=== PATIENT | female | born 1945 | race Caucasian/White ===

== ENCOUNTER 2016-09-10 18:43 | Inpatient (IN) | payer MEDICARE, MEDICAID ==
[~2016-09-10] VITALS: Ht 154.9 cm; Wt 62.1 kg
[~2016-09-10 18:43] MED LIST: LIDOCAINE HCL/PF 1% 2 ML VIAL INJ ONE
[2016-09-10] MEDS ORDERED: ATOR40TA28 PO (19:05)
[2016-09-10] MEDS ORDERED: LEVO250T58 PO (19:05)
[2016-09-10] MEDS ORDERED: ASPI81TA2 PO (19:05)
[2016-09-10] MEDS ORDERED: FURO20 PO (19:05)
[2016-09-10] MEDS ORDERED: GLIP5TAB11 PO (19:05)
[2016-09-10] MEDS ORDERED: CALCIUM CARBONATE PO (19:05)
[2016-09-10] MEDS ORDERED: CEPH250C2 PO (19:05)
[2016-09-10] MEDS ORDERED: GABA-529 PO (19:05)
[2016-09-10] MEDS ORDERED: VALS160T2 PO (19:05)
[2016-09-10] MEDS ORDERED: METO-325 PO (19:05)
[2016-09-10 19:07] LABS: GLUCOSE,POINT OF CARE 85 MG/DL (70-110)
[2016-09-10 19:57] LABS: BASOPHILS % (AUTO) 0.3 % (0.0-2.0); EOSINOPHILS % (AUTO) 8.6 % (1.0-6.0); HEMOGLOBIN 11.2 g/dL (12.0-16.0); LYMPHOCYTES # (AUTO) 2.9 K/uL (1.0-4.8); LYMPHOCYTES % (AUTO) 26.2 % (22.0-44.0); MEAN CORPUSCULAR HEMOGLOBIN 30.5 pg (26.0-34.0); MEAN CORPUSCULAR HGB CONC 32.8 G/dL (31.0-37.0); MEAN CORPUSCULAR VOLUME 93 fL (80-100); MONOCYTES % (AUTO) 9.2 % (2.0-9.0); NEUTROPHILS # (AUTO) 6.1 K/uL (1.8-7.7); NEUTROPHILS % (AUTO) 55.7 % (40.0-70.0); PLATELET COUNT (AUTO) 257 K/uL (150-450); RED BLOOD CELL COUNT(AUTO) 3.66 MIL/uL (4.00-5.20); RED CELL DISTRIBUTION WIDTH 14.1 % (11.5-14.5)
[2016-09-10 20:07] LABS: ANION GAP 11 mmol/L (8-16); CALCIUM, TOTAL 8.1 mg/dL (8.8-10.5); CARBON DIOXIDE 26 mmol/L (22-29); CHLORIDE 95 mmol/L (98-107); CREATININE 7.58 mg/dL (0.60-1.30); GLOMERULAR FILTR. RATE CALC 5 mL/min (>60); POTASSIUM 4.7 mmol/L (3.5-5.1); SODIUM SERUM 132 mmol/L (136-145); UREA NITROGEN, BLOOD 64 mg/dL (7-18)
[2016-09-10 20:22] LABS: ALANINE AMINOTRANSFERASE 15 U/L (12-78); ALBUMIN 3.5 g/dL (3.4-5.0); ASPARTATE AMINOTRANSFERASE 16 U/L (15-37); BILIRUBIN,TOTAL 0.3 mg/dL (0.1-1.0); CREATINE KINASE, TOTAL 43 U/L (26-192); TOTAL PROTEIN, SERUM 8.4 g/dL (6.4-8.2)
[2016-09-10] MEDS ORDERED: METOPROLOL TARTRATE 50 MG TABLET PO ONE (22:00)
[2016-09-10 22:30] VITALS: BP 197/96
[2016-09-10] MEDS ORDERED: PNEUMOCOCCAL VACCINE POLYVALENT 0.5 ML VIAL [PPSV23] IM ONE (23:30)
[2016-09-10 23:38] VITALS: BP 142/60
[2016-09-11] MEDS ORDERED: ONDANSETRON HCL 4 MG/2 ML VIAL IVP PRN (00:15)
[2016-09-11] MEDS ORDERED: 0.9% SODIUM CHLORIDE 10 ML SYRINGE IVP PRN (00:15)
[2016-09-11] MEDS ORDERED: ACETAMINOPHEN 325 MG TABLET PO PRN (00:15)
[2016-09-11 04:08] VITALS: BP 156/68
[2016-09-11 05:18] LABS: APPEARANCE,URINE CLOUDY (CLEAR); GLUCOSE, URINE (UA) 250 mg/dL (NEGATIVE); KETONES,URINE NEGATIVE (NEGATIVE); LEUKOCYTE ESTERASE ,URINE TRACE (NEGATIVE); OCCULT BLOOD,URINE SMALL (NEGATIVE); PH,URINE 7.5 (5.0-8.0); PROTEIN,URINE SEE CONFIRM (NEGATIVE)
[2016-09-11 05:20] LABS: ADD UA MICROSCOPIC YES
[2016-09-11 05:27] LABS: SQUAMOUS EPITHELIAL CELL,UR Moderate /LPF (None Seen); SULFOSALICYLIC ACID,URINE 3+ (Negative)
[2016-09-11 07:03] VITALS: BP 167/77
[2016-09-11] MEDS: HEPARIN SODIUM,PORCINE 5,000 UNITS/ML VIAL SQ SCH ×2 (08:50→20:12)
[2016-09-11 11:30] VITALS: BP 183/72
[2016-09-11] MEDS: HYDROCODONE/ACETAMINOPHEN 5-325 MG TABLET PO PRN ×2 (14:08→20:12)
[2016-09-11 17:40] VITALS: BP 175/79
[2016-09-11] MEDS: HydrALAZINE HCL 50 MG TABLET PO SCH ×2 (18:55→20:12)
[2016-09-11] MEDS: VITAMIN B COMP/VIT C/FOLIC ACID CAPSULE PO SCH (18:55)
[2016-09-11 19:56] VITALS: BP 180/79
[2016-09-11 22:30] VITALS: BP 194/74
[2016-09-11] MEDS: GABAPENTIN 100 MG CAPSULE PO SCH (22:48)
[2016-09-11] MEDS: ATORVASTATIN CALCIUM 40 MG TABLET PO SCH (22:48)
[2016-09-11] MEDS: METOPROLOL SUCCINATE 50 MG ER TABLET PO SCH (22:48)
[2016-09-11] MEDS: VALSARTAN 160 MG TABLET PO SCH (22:48)
[2016-09-11] MEDS: ASPIRIN 81 MG EC TABLET PO SCH (22:48)
[2016-09-12] VITALS (7 sets, daily range): BP systolic 149–181; BP diastolic 63–79
[2016-09-12] MEDS ORDERED: GlipiZIDE 5 MG TABLET PO SCH (06:30)
[2016-09-12] MEDS: HydrALAZINE HCL 50 MG TABLET PO SCH ×3 (08:26→20:09)
[2016-09-12] MEDS: CALCIUM CARBONATE 648 MG TABLET PO SCH (08:27)
[2016-09-12] MEDS: VITAMIN B COMP/VIT C/FOLIC ACID CAPSULE PO SCH (08:27)
[2016-09-12] MEDS: VALSARTAN 160 MG TABLET PO SCH (08:27)
[2016-09-12] MEDS: FUROSEMIDE 40 MG TABLET PO SCH (08:27)
[2016-09-12] MEDS: ASPIRIN 81 MG EC TABLET PO SCH (08:28)
[2016-09-12] MEDS: METOPROLOL SUCCINATE 50 MG ER TABLET PO SCH ×2 (08:29→20:09)
[2016-09-12] MEDS: HEPARIN SODIUM,PORCINE 5,000 UNITS/ML VIAL SQ SCH ×2 (08:29→20:09)
[2016-09-12] MEDS: GABAPENTIN 100 MG CAPSULE PO SCH (08:29)
[2016-09-12] MEDS ORDERED: VALSARTAN 160 MG TABLET PO ONE (09:45)
[2016-09-12] MEDS: PANTOPRAZOLE SODIUM 40 MG DR TABLET PO SCH (10:38)
[2016-09-12] MEDS: ATORVASTATIN CALCIUM 40 MG TABLET PO SCH (20:09)
[2016-09-13] MEDS: HYDROCODONE/ACETAMINOPHEN 5-325 MG TABLET PO PRN ×2 (00:07→16:50)
[2016-09-13 01:01] VITALS: BP 158/74
[2016-09-13 05:58] VITALS: BP 138/66
[2016-09-13 06:33] LABS: CALCIUM, TOTAL 7.8 mg/dL (8.8-10.5); MAGNESIUM 1.9 mg/dL (1.80-2.40); PHOSPHORUS 5.6 mg/dL (2.5-4.9)
[2016-09-13 06:56] LABS: BASOPHILS # (AUTO) 0.04 K/uL (0.00-0.20); BASOPHILS % (AUTO) 0.4 % (0.0-2.0); EOSINOPHILS # (AUTO) 0.67 K/uL (0.00-0.70); EOSINOPHILS % (AUTO) 5.99 % (1.0-6.0); HEMATOCRIT 29.3 % (36-46); HEMOGLOBIN 9.9 g/dL (12.0-16.0); LYMPHOCYTES # (AUTO) 3.2 K/uL (1.0-4.8); LYMPHOCYTES % (AUTO) 28.4 % (22.0-44.0); MEAN CORPUSCULAR HGB CONC 33.9 G/dL (31.0-37.0); MEAN CORPUSCULAR VOLUME 91 fL (80-100); MONOCYTES # (AUTO) 1.1 K/uL (0.1-1.0); MONOCYTES % (AUTO) 9.5 % (2.0-9.0); NEUTROPHILS # (AUTO) 6.3 K/uL (1.8-7.7); NEUTROPHILS % (AUTO) 55.8 % (40.0-70.0); PLATELET COUNT (AUTO) 219 K/uL (150-450); RED BLOOD CELL COUNT(AUTO) 3.21 MIL/uL (4.00-5.20); RED CELL DISTRIBUTION WIDTH 14.7 % (11.5-14.5); WHITE BLOOD COUNT (AUTO) 11.2 K/uL (4.5-11.0)
[2016-09-13 07:37] VITALS: BP 141/55
[2016-09-13] MEDS: ASPIRIN 81 MG EC TABLET PO SCH (08:43)
[2016-09-13] MEDS: PANTOPRAZOLE SODIUM 40 MG DR TABLET PO SCH (08:43)
[2016-09-13] MEDS: GABAPENTIN 100 MG CAPSULE PO SCH (08:43)
[2016-09-13] MEDS: VITAMIN B COMP/VIT C/FOLIC ACID CAPSULE PO SCH (08:43)
[2016-09-13] MEDS: METOPROLOL SUCCINATE 50 MG ER TABLET PO SCH ×2 (08:44→20:29)
[2016-09-13] MEDS: CALCIUM CARBONATE 648 MG TABLET PO SCH (08:46)
[2016-09-13] MEDS: FUROSEMIDE 40 MG TABLET PO SCH (08:46)
[2016-09-13] MEDS: HydrALAZINE HCL 50 MG TABLET PO SCH ×3 (08:46→20:29)
[2016-09-13] MEDS: HEPARIN SODIUM,PORCINE 5,000 UNITS/ML VIAL SQ SCH ×2 (08:48→20:29)
[2016-09-13] MEDS: VALSARTAN 160 MG TABLET PO SCH (08:48)
[2016-09-13 11:23] VITALS: BP 141/56
[2016-09-13 15:16] VITALS: BP 143/68
[2016-09-13 19:53] VITALS: BP 148/58
[2016-09-13] MEDS: ATORVASTATIN CALCIUM 40 MG TABLET PO SCH (20:29)
[2016-09-13 23:17] LABS: GLUCOSE,POINT OF CARE 124 MG/DL (70-110)
[2016-09-14] VITALS (8 sets, daily range): BP systolic 140–180; BP diastolic 55–68
[2016-09-14 06:56] LABS: CALCIUM, TOTAL 8.3 mg/dL (8.8-10.5); CREATININE 7.25 mg/dL (0.60-1.30); POTASSIUM 5.3 mmol/L (3.5-5.1)
[2016-09-14] MEDS: HEPARIN SODIUM,PORCINE 5,000 UNITS/ML VIAL SQ SCH ×2 (08:13→20:12)
[2016-09-14] MEDS: VALSARTAN 160 MG TABLET PO SCH ×2 (08:14→09:00)
[2016-09-14] MEDS: PANTOPRAZOLE SODIUM 40 MG DR TABLET PO SCH (08:14)
[2016-09-14] MEDS: ASPIRIN 81 MG EC TABLET PO SCH (08:14)
[2016-09-14] MEDS: VITAMIN B COMP/VIT C/FOLIC ACID CAPSULE PO SCH (08:14)
[2016-09-14] MEDS: CALCIUM CARBONATE 648 MG TABLET PO SCH (08:15)
[2016-09-14] MEDS: METOPROLOL SUCCINATE 50 MG ER TABLET PO SCH ×3 (08:15→20:12)
[2016-09-14] MEDS: FUROSEMIDE 40 MG TABLET PO SCH (08:15)
[2016-09-14] MEDS: GABAPENTIN 100 MG CAPSULE PO SCH (08:16)
[2016-09-14] MEDS: HydrALAZINE HCL 50 MG TABLET PO SCH ×3 (08:16→20:12)
[2016-09-14] MEDS ORDERED: DOXERCALCIFEROL 4 MCG/2 ML AMP IVP SCH (10:00)
[2016-09-14] MEDS ORDERED: SODIUM CHLORIDE 0.9% 2,000 ML IV ONE (10:00)
[2016-09-14] MEDS ORDERED: DOXERCALCIFEROL 4 MCG/2 ML AMP IVP PRN (10:15)
[2016-09-14] MEDS ORDERED: EPOETIN ALFA 10,000 UNITS/ML 2 ML VIAL SQ SCH (10:15)
[2016-09-14] MEDS: SEVELAMER CARBONATE 800 MG TABLET PO SCH ×3 (12:00→18:04)
[2016-09-14] MEDS: HYDROCODONE/ACETAMINOPHEN 5-325 MG TABLET PO PRN (20:12)
[2016-09-14] MEDS: ATORVASTATIN CALCIUM 40 MG TABLET PO SCH (20:12)
[2016-09-15] MEDS: HYDROCODONE/ACETAMINOPHEN 5-325 MG TABLET PO PRN (02:37)
[2016-09-15 04:31] VITALS: BP 164/70
[2016-09-15] MEDS ORDERED: ACETAMINOPHEN 325 MG TABLET PO ONE (06:30)
[2016-09-15 07:21] VITALS: BP 175/70
[2016-09-15] MEDS: SEVELAMER CARBONATE 800 MG TABLET PO SCH ×2 (07:57→11:44)
[2016-09-15] MEDS: ASPIRIN 81 MG EC TABLET PO SCH (07:57)
[2016-09-15] MEDS: METOPROLOL SUCCINATE 50 MG ER TABLET PO SCH (07:58)
[2016-09-15] MEDS: FUROSEMIDE 40 MG TABLET PO SCH (07:58)
[2016-09-15] MEDS: VALSARTAN 160 MG TABLET PO SCH (07:58)
[2016-09-15] MEDS: HydrALAZINE HCL 50 MG TABLET PO SCH (07:58)
[2016-09-15] MEDS: GABAPENTIN 100 MG CAPSULE PO SCH (07:58)
[2016-09-15] MEDS: VITAMIN B COMP/VIT C/FOLIC ACID CAPSULE PO SCH (07:58)
[2016-09-15] MEDS: PANTOPRAZOLE SODIUM 40 MG DR TABLET PO SCH (07:58)
[2016-09-15] MEDS: HEPARIN SODIUM,PORCINE 5,000 UNITS/ML VIAL SQ SCH (07:58)
[2016-09-15] MEDS ORDERED: EPOETIN ALFA 10,000 UNITS/ML 2 ML VIAL SQ SCH (09:00)
[2016-09-15] MEDS ORDERED: -HEMODIALYSIS NOTE- MISC SCH (09:00)
[2016-09-15] MEDS ORDERED: FUROSEMIDE 40 MG TABLET PO SCH (10:00)
[2016-09-15 10:32] VITALS: BP 155/68
[2016-09-15 11:05] VITALS: BP 146/68
[2016-09-15 15:15] VITALS: BP 158/70
[2016-09-16] MEDS ORDERED: IRON SUCROSE COMPLEX IV ONE (09:00)
[2016-09-16] MEDS ORDERED: SODIUM CHLORIDE 0.9% IV ONE (09:00)
== END 2016-09-15 17:25 | DRG 291 ==
LOC: EMS 18:47 → 5S 21:00
PROVIDERS: ADMIT Internal Medicine; ATTEND Internal Medicine
PROC: 5A1D60Z (ICD-10-PCS; 2016-09-11)
PROC: 3E0234Z Introduction of Serum, Toxoid and Vaccine into Muscle, Percutaneous Approach (ICD-10-PCS; principal; 2016-09-12)
DX: I13.2 Hypertensive heart and chronic kidney disease with heart failure and with stage 5 chronic kidney disease, or end stage renal disease (principal); N18.6 End stage renal disease; E11.22 Type 2 diabetes mellitus with diabetic chronic kidney disease; E11.319 Type 2 diabetes mellitus with unspecified diabetic retinopathy without macular edema; D63.1 Anemia in chronic kidney disease; E11.40 Type 2 diabetes mellitus with diabetic neuropathy, unspecified; E78.2 Mixed hyperlipidemia; H40.9 Unspecified glaucoma; H54.8 Legal blindness, as defined in USA; I25.10 Atherosclerotic heart disease of native coronary artery without angina pectoris; I50.9 Heart failure, unspecified; I16.0 Hypertensive urgency; Z23 Encounter for immunization; E21.3 Hyperparathyroidism, unspecified; Z79.82 Long term (current) use of aspirin; Z99.2 Dependence on renal dialysis; Z79.899 Other long term (current) drug therapy; Z82.3 Family history of stroke; Z98.890 Other specified postprocedural states; Z82.49 Family history of ischemic heart disease and other diseases of the circulatory system
CPT/HCPCS: 82962; 83735; 83970; 84100; 87081; 87340; 90471; 93005; 93306; 99285; J0885; J1644; J1756; J2405; J3490; J7030; J7050

== ENCOUNTER 2016-10-24 17:07 | Emergency (ER) | payer MEDICARE, MEDICAID ==
[~2016-10-24] VITALS: Ht 152.4 cm; Wt 68.2 kg
[~2016-10-24 17:07] MED LIST changes: +ASPI81TA2 PO; +ATOR40TA28 PO; +CALCIUM CARBONATE PO; +CEPH250C2 PO; +FURO20 PO; +GABA-529 PO; +GLIP5TAB11 PO; +LEVO250T58 PO; -LIDOCAINE HCL/PF 1% 2 ML VIAL INJ ONE; +METO-325 PO; +VALS160T2 PO
[2016-10-24 17:32] LABS: GLUCOSE,POINT OF CARE 194 MG/DL (70-110)
[2016-10-24] MEDS ORDERED: HydrOXYzine PAMOATE 50 MG CAPSULE PO ONE (17:45)
[2016-10-24] MEDS ORDERED: ACETAMINOPHEN 325 MG TABLET PO ONE (17:45)
[2016-10-24 21:08] VITALS: BP 174/76
== END 2016-10-24 21:21 | disposition home or self-care (01) ==
LOC: EMS 17:08
DX: I10 Essential (primary) hypertension (principal); E11.29 Type 2 diabetes mellitus with other diabetic kidney complication; N28.9 Disorder of kidney and ureter, unspecified; E78.00 Pure hypercholesterolemia, unspecified; Z79.82 Long term (current) use of aspirin
CPT/HCPCS: 82962; 99283

== ENCOUNTER 2016-11-08 15:19 | Emergency (ER) | payer MEDICARE, MEDICAID ==
[~2016-11-08] VITALS: Ht 154.9 cm; Wt 60.0 kg
[2016-11-08 15:47] LABS: GLUCOSE,POINT OF CARE 196 MG/DL (70-110)
[2016-11-08 16:41] LABS: BASOPHILS % (AUTO) 0.1 % (0.0-2.0); EOSINOPHILS % (AUTO) 3.7 % (1.0-6.0); HEMATOCRIT 36.4 % (36-46); HEMOGLOBIN 11.4 g/dL (12.0-16.0); LYMPHOCYTES # (AUTO) 2.2 K/uL (1.0-4.8); LYMPHOCYTES % (AUTO) 19.4 % (22.0-44.0); MEAN CORPUSCULAR HEMOGLOBIN 29.4 pg (26.0-34.0); MEAN CORPUSCULAR HGB CONC 31.3 G/dL (31.0-37.0); MEAN CORPUSCULAR VOLUME 94 fL (80-100); MONOCYTES # (AUTO) 0.9 K/uL (0.1-1.0); MONOCYTES % (AUTO) 7.6 % (2.0-9.0); NEUTROPHILS # (AUTO) 7.8 K/uL (1.8-7.7); NEUTROPHILS % (AUTO) 69.2 % (40.0-70.0); PLATELET COUNT (AUTO) 284 K/uL (150-450); RED BLOOD CELL COUNT(AUTO) 3.89 MIL/uL (4.00-5.20); RED CELL DISTRIBUTION WIDTH 14.9 % (11.5-14.5); WHITE BLOOD COUNT (AUTO) 11.3 K/uL (4.5-11.0)
[2016-11-08 16:44] LABS: APPEARANCE,URINE CLOUDY (CLEAR); GLUCOSE, URINE (UA) 250 mg/dL (NEGATIVE); KETONES,URINE NEGATIVE (NEGATIVE); LEUKOCYTE ESTERASE ,URINE SMALL (NEGATIVE); OCCULT BLOOD,URINE SMALL (NEGATIVE); PROTEIN,URINE SEE CONFIRM (NEGATIVE)
[2016-11-08] MEDS ORDERED: ONDANSETRON HCL 4 MG/2 ML VIAL IVP ONE (16:45)
[2016-11-08] MEDS ORDERED: PANTOPRAZOLE SODIUM 40 MG/VIAL IVP ONE (16:45)
[2016-11-08 16:50] LABS: ANION GAP 8 mmol/L (8-16); CALCIUM, TOTAL 9.2 mg/dL (8.8-10.5); CARBON DIOXIDE 30 mmol/L (22-29); CHLORIDE 95 mmol/L (98-107); CREATININE 5.02 mg/dL (0.60-1.30); GLOMERULAR FILTR. RATE CALC 8 mL/min (>60); SODIUM SERUM 133 mmol/L (136-145); UREA NITROGEN, BLOOD 34 mg/dL (7-18)
[2016-11-08 16:52] LABS: SQUAMOUS EPITHELIAL CELL,UR Many /LPF (None Seen); SULFOSALICYLIC ACID,URINE 4+ (Negative)
[2016-11-08 16:58] LABS: ALANINE AMINOTRANSFERASE 17 U/L (12-78); ALBUMIN 3.4 g/dL (3.4-5.0); ASPARTATE AMINOTRANSFERASE 20 U/L (15-37); BILIRUBIN,TOTAL 0.7 mg/dL (0.1-1.0); CREATINE KINASE, TOTAL 22 U/L (26-192); TOTAL PROTEIN, SERUM 8.9 g/dL (6.4-8.2)
[2016-11-08 18:51] VITALS: BP 193/93
== END 2016-11-08 18:54 | disposition home or self-care (01) ==
LOC: EMS 15:21
DX: K29.70 Gastritis, unspecified, without bleeding (principal); R07.9 Chest pain, unspecified; E11.22 Type 2 diabetes mellitus with diabetic chronic kidney disease; N18.6 End stage renal disease; E11.40 Type 2 diabetes mellitus with diabetic neuropathy, unspecified; I12.0 Hypertensive chronic kidney disease with stage 5 chronic kidney disease or end stage renal disease; E78.00 Pure hypercholesterolemia, unspecified; Z79.82 Long term (current) use of aspirin; Z99.2 Dependence on renal dialysis
CPT/HCPCS: 36415; 71010; 74176; 80053; 81001; 81002; 82550; 82962; 84484; 85025; 87086; 93005; 96374; 96375; 99285; C9113; J2405